=== PATIENT | female | born 1995 | race Caucasian/White ===

== ENCOUNTER 2025-03-25 18:14 | Emergency (ER) | payer OTHER, SELFPAY ==
[2025-03-25 18:37] VITALS: BP 103/67; PULSE 127; TEMP 38.7; O2SAT 99; BMI 17.2
--- NOTE | 2025-03-25 19:26 | CT_ITS ---
The [address] [address] Patient Name: TODD CARRILLO MRN: [facility]:[id number] date: 1995 Sex: F Assigned Patient Location: ED.MAIN Current Patient Location: ED.MAIN Accession/Order Number: [id number] Exam Date: 03/25/2025 20:30 Report Date: 03/25/2025 21:45 At the request of: HILLARY SALDAÑA MD Procedure: CT abdomen pelvis w con CT ABDOMEN AND PELVIS WITH INTRAVENOUS CONTRAST: CLINICAL HISTORY: perianal abscess COMPARISON: None TECHNIQUE: Spiral images were obtained through the abdomen and pelvis following the administration of intravenous contrast. This CT exam was performed using one or more following dose reduction techniques: Automated exposure control, adjustment of the mA and/or kV according to patient size, or use of iterative reconstruction technique. FINDINGS: Lung Bases: [No focal opacity] Organs:Liver, gallbladder, spleen, adrenals, kidneys, and pancreas unremarkable.[ GI: The postsurgical changes involving the right colon with asthmatic suture lines noted. Mhyd-ac-kogygtar stool noted. No findings of bowel obstruction. Mild wall of the level of the rectum noted with a perirectal abscess measuring 2.5 x 2.1 x 2.5 cm in size. Pelvis:[Uterus and adnexa grossly unremarkable. Bladder is unremarkable.] Peritoneum/Retroperitoneum:No free air or free fluid aorta unremarkable caliber. There are mildly prominent mesenteric lymph nodes up to 1.1 cm in short axis dimension noted. Abd wall/Bones:No suspicious osseous lesion.[ CT/CT abdomen pelvis w con IMPRESSION: Perirectal abscess identified approximately 2.5 cm in size with surrounding phlegmonous change. Mildly prominent mesenteric lymph nodes noted could be reactive. Consider follow-up as warranted Impression dictated by: Samy Boykin M.D. 03/25/2025 9:45 PM Dictation Location: [place] [address] Electronically authenticated by: [id number] Y Date: 03/25/2025 21:45
--- NOTE | 2025-03-25 19:27 | ED.GENADUL1 ---
HPI HPI - General Adult General Chief complaint: Abdominal Pain Stated complaint: RECTAL PAIN WITH FEVERS Time Seen by Provider: 03/25/25 18:37 Source: patient Mode of arrival: walk-in Limitations: no limitations History of Present Illness HPI narrative: history of Crohn's . Past colostomy that was reversed. 03/07/25 seen by GI with concern for possible perianal abscess. states she was given a dose of amoxicillin and after one dose her symptoms resolvded and she did not continue the antibiotics. Yesterday recurrence of perianal pain. Today has fever. No abdominal pain or rectal bleeding. She is on antibiologic per GI. Denies urinary or respiratory symptoms Related Data Home Medications ?Medication ?Instructions ?Recorded ?Confirmed No Known Home Medications 03/25/25 03/25/25 Allergies Allergy/AdvReac Type Severity Reaction Status Date / Time No Known Drug Allergies Allergy Verified 03/25/25 18:37 Opioid HPI Opioid Management Most Recent Opioid Data: Last Pain Scale 7 03/25/25, 22:50 Last MAR Pain Assessment 03/25/25, 20:09 Review of Systems ROS Status of ROS 10 or more systems reviewed and unremarkable except as noted in history and below Exam Constitutional Vital Signs, click to edit/add: Last Vital Signs Temp 98.9 F 03/26/25 00:02 Pulse 88 03/26/25 00:02 Resp 16 03/26/25 00:02 BP 103/67 03/25/25 18:37 Pulse Ox 99 03/26/25 00:02 O2 Del Method Room Air 03/26/25 00:02 Common normals: no apparent distress, average body habitus, oriented x3, no limitations, healthy appearing, alert and well nourished [facility] Common normals: normocephalic and head/scalp atraumatic Eye Common normals: PERRL, EOMs intact bilaterally and conjunctivae normal Respiratory Common normals: normal respiratory effort, no retractions, no use of accessory muscles and clear to auscultation bilaterally Cardio Common normals: regular rate, regular rhythm, S1 normal heart sound and S2 normal heart sound GI Common normals: Normal to inspection, nondistended, normoactive bowel sounds present, soft to palpation and non-tender Back & Pelvis Other: perianal exam with nursing and her present. Finds perianal abscess that is tender and not indurated. No surrounding erythema Extremity Common normals: normal to inspection and full ROM Neuro Common normals: oriented x3, CN's II-XII intact bilaterally, moves all extremities, no focal motor deficits and no sensory deficits noted Psych Appearance: grossly normal Course Vital Signs Vital signs: Vital Signs Temperature 101.7 F H 03/25/25 18:37 Pulse Rate 127 H 03/25/25 18:37 Respiratory Rate 16 03/25/25 18:37 Blood Pressure 103/67 03/25/25 18:37 Pulse Oximetry 99 03/25/25 18:37 Oxygen Delivery Method Room Air 03/25/25 18:37 Temperature 98.9 F 03/26/25 00:02 Pulse Rate 88 03/26/25 00:02 Respiratory Rate 16 03/26/25 00:02 Blood Pressure 103/67 03/25/25 18:37 Pulse Oximetry 99 03/26/25 00:02 Oxygen Delivery Method Room Air 03/26/25 00:02 Medical Decision Making MDM Narrative Medical decision making narrative: history of crohn's disease. Ill since yesterday with fever and anal pain. Exam with findings of perianal abscess. she has fever [address]. [address] confirms perirectal absces . 2.5cm with surrounding phlegmonous change. Patient informed of the plan to incise and drain the abscess. She does not want the procedure here and request we discuss with her colorectal surgeon at [facility]. Surgeon terrence spoke to colorectal surgeon Dr Larios who is preconstruction manager. He accepted the patient in transfer but the beds are full at [facility] and she will be waiting all night. Patient informed of the above and again is refusing to have her abscessed incised here. She is requesting to leave [place]. she is even calling her insurance company to check if they pay after she leaves [place] Again advised against leaving but she insist on leaving and her is in agreement Lab Data Labs: Lab Results 03/25/25 Range/Units 19:30 WBC 17.7 H (4.0-11.0) 10^3/uL RBC 4.65 (4.20-5.40) 10^6/uL Hgb 12.0 (12.0-16.0) g/dL Hct 38.8 (36.0-48.0) % MCV 83.4 (81.0-99.0) fL MCH 25.8 L (26.7-34.0) pg MCHC 30.9 (29.9-35.2) g/dL RDW 13.8 (11.0-15.0) % Plt Count 394 (150-450) 10^3/uL MPV 8.2 L (9.5-13.5) fL Seg Neuts % (Manual) 66.0 (43.0-75.0) Lymphocytes % (Manual) 22.0 (20.5-60.0) % Monocytes % (Manual) 12.0 (1.7-12.0) % Eosinophils % (Manual) 0.0 L (0.9-7.0) % Basophils % (Manual) 0.0 L (0.2-2.0) % Neutrophils # (Manual) 11.68 H (1.4-6.5) 10^3/uL Lymphocytes # (Manual) 3.89 H (1.20-3.80) 10^3/uL Monocytes # (Manual) 2.12 H (0.30-0.80) 10^3/uL Eosinophils # (Manual) 0.00 (0.00-0.70) 10^3/uL Basophils # (Manual) 0.00 (0.00-0.10) 10^3/uL Sodium 137 (136-145) mmol/L Potassium 3.6 (3.5-5.1) mmol/L Chloride 100 (98-107) mmol/L Carbon Dioxide 27.2 (21.0-32.0) mmol/L Anion Gap 13.4 BUN 9.0 (7.0-18.0) mg/dL Creatinine 0.59 (0.55-1.02) mg/dL Est GFR ( Amer) >60 (>=60 mL/min/1.73m^2) Est GFR (Non-Af Amer) >60 (>=60 mL/min/1.73m^2) BUN/Creatinine Ratio 15.3 Glucose 80 (74-106) mg/dL Lactate 0.9 (0.4-2.0) mmol/L Calcium 8.9 (8.5-10.1) mg/dL Total Bilirubin 0.6 (0.2-1.0) mg/dL AST 14 L (15-37) U/L ALT 22 (14-59) U/L Alkaline Phosphatase 91 (46-116) U/L Total Protein 8.2 (6.4-8.2) g/dL Albumin 2.9 L (3.4-5.0) g/dL Globulin 5.3 g/dL Albumin/Globulin Ratio 0.5 Serum HCG, Qual Negative (NEGATIVE) Discharge Plan Discharge Stand Alone Forms: Portal Instructions Chief Complaint: Abdominal Pain Clinical Impression: Abscess, perianal Patient Disposition: Left Against Medical Advice Prescriptions / Home Meds: No Action No Known Home Medications Print Language: Palauan Referrals: CORDELIA SANCHEZ [Primary Care Provider, [facility]] - 1 week Discharge Date/Time: 03/26/25 00:00
[2025-03-25 19:53] LABS: Hematocrit 38.8 % (36.0-48.0); Hemoglobin 12.0 g/dL (12.0-16.0); Mean Corpuscular HGB Conc 30.9 g/dL (29.9-35.2); Mean Corpuscular Hemoglobin 25.8 pg (26.7-34.0); Mean Corpuscular Volume 83.4 fL (81.0-99.0); Platelet Count 394 10^3/uL (150-450); Red Blood Count 4.65 10^6/uL (4.20-5.40); White Blood Count 17.7 10^3/uL (4.0-11.0)
[2025-03-25] MEDS: PIPERACILLIN SODIUM/TAZOBACTAM 3.375 GM in 0.9 % SODIUM CHLORIDE 50 ML IV (20:00)
[2025-03-25] MEDS: 0.9 % SODIUM CHLORIDE 1,000 ML 999 ML IV (20:01)
[2025-03-25 20:09] VITALS: TEMP 38.8
[2025-03-25 20:10] LABS: Alanine Aminotransferase 22 U/L (14-59); Albumin Globulin Ratio 0.5; Albumin Level 2.9 g/dL (3.4-5.0); Alkaline Phosphatase 91 U/L (46-116); Anion Gap 13.4; Aspartate Amino Transferase 14 U/L (15-37); Blood Urea Nitrogen 9.0 mg/dL (7.0-18.0); Calcium 8.9 mg/dL (8.5-10.1); Carbon Dioxide 27.2 mmol/L (21.0-32.0); Chloride 100 mmol/L (98-107); Estimated GFR (African America >60 (>=60 mL/min/1.73m^2); Estimated GFR (Non-African Ame >60 (>=60 mL/min/1.73m^2); Globulin 5.3 g/dL; Glucose 80 mg/dL (74-106); Potassium 3.6 mmol/L (3.5-5.1); Sodium 137 mmol/L (136-145); Total Protein 8.2 g/dL (6.4-8.2)
[2025-03-25 20:11] LABS: Lactate/Lactic Acid 0.9 mmol/L (0.4-2.0)
[2025-03-25 20:24] VITALS: TEMP 38.4
[2025-03-25] MEDS: KETOROLAC TROMETHAMINE 30 MG/ML VIAL IVP (20:29)
[2025-03-25 20:31] LABS: Basophils Abs Manual 0.00 10^3/uL (0.00-0.10); Basophils Percent Manual 0.0 % (0.2-2.0); Eosinophils Absolute Manual 0.00 10^3/uL (0.00-0.70); Eosinophils Percent Manual 0.0 % (0.9-7.0); Lymphocytes Absolute Manual 3.89 10^3/uL (1.20-3.80); Lymphocytes Percent Manual 22.0 % (20.5-60.0); Monocytes Absolute Manual 2.12 10^3/uL (0.30-0.80); Monocytes Percent Manual 12.0 % (1.7-12.0); Segmented Neut Absolute Manual 11.68 10^3/uL (1.4-6.5); Segmented Neutrophils % Manual 66.0 (43.0-75.0)
[2025-03-25] MEDS: FENTANYL CITRATE/PF 100 MCG/2 ML VIAL 50 MCG IV ×2 (20:40→22:50)
[2025-03-25] MEDS: AMOXICILLIN/POT CLAV 875-125 MG TABLET 1 TAB PO (23:51)
--- NOTE | 2025-03-25 23:55 | PC.NURSE ---
After much discussion, education, and careful consideration, pt has decided to leave AMA with her spouse. MD braga.
[2025-03-26 00:02] VITALS: PULSE 88; TEMP 37.2; O2SAT 99
== END 2025-03-26 | disposition left against medical advice (07) ==
PROVIDERS: Emergency Provider Internal Medicine; PCP Family Medicine
DX: K61.0 Anal abscess (principal); R50.9 Fever, unspecified; K50.90 Crohn's disease, unspecified, without complications; Z53.29 Procedure and treatment not carried out because of patient's decision for other reasons
CPT/HCPCS: 36415; 74177; 80053; 83605; 84703; 85007; 85027; 87040; 96365; 96375; 96376; 99285; J1885; J2543; J3010; Q9967